=== PATIENT | male | born 1950 | race Caucasian/White ===

== ENCOUNTER → 2017-06-22 | Outpatient (CLI) | payer MEDICARE ==
[~2017-06-22] MED LIST: ASPIRIN LO-DOSE81 MG PO; CARAFATE1 GM PO; COREG25 MG PO; DEXILANT60 MG PO; ENTRESTO 24 MG1 EACH PO; FLEXERIL10 MG PO; HYDROCODON-ACE1 EAC4 PO; JANUVIA50 MG PO; K-TAB ER20 MEQ PO; LASIX40 MG PO; LEVEMIR100 UNIT/1 SUB-Q; MS CONTIN15 MG PO; NITROSTAT0.4 MG SL; PROZAC40 MG PO; REQUIP1 MG PO; TRENTAL400 MG PO; TYLENOL325 MG PO; XARELTO20 MG PO; ZOCOR40 MG PO
[2017-06-22 10:46] LABS: BASOPHIL # 0.1 K/uL (0.0-0.2); BASOPHIL % 1.2 %; EOSINOPHIL # 0.3 K/uL (0.0-0.5); EOSINOPHIL % 3.7 %; HEMATOCRIT 34.4 % (37.0-53.0); HEMOGLOBIN 11.5 g/dL (11.0-16.0); IMMATURE GRANULOCYTE % 0.3 %; LYMPHOCYTE # 1.6 K/uL (0.8-4.0); LYMPHOCYTE % 20.8 %; MCH 30.8 pg (27.0-34.0); MCHC 33.4 gm/dL (32.0-36.5); MCV 92.2 fl (83.0-98.0); MONOCYTE # 0.6 K/uL (0.0-1.0); MONOCYTE % 7.3 %; MPV 11.2 fl (9.4-12.4); NEUTROPHIL # (ANC) 5.1 K/uL (1.4-9.0); NEUTROPHIL % 66.7 %; NRBC % 0 /100WBC (0-0.00); PLATELET COUNT 161 K/uL (150-450); RBC 3.73 M/uL (3.50-5.50); RDW-CV 13.7 % (11.9-14.6); WBC 7.6 K/uL (4.0-11.0)
[2017-06-22 11:11] LABS: ALBUMIN 3.5 gm/dL (3.5-5.0); ANION GAP 9.8 (10.0-19.0); CALCIUM 8.2 mg/dL (8.5-10.5); CREATININE 1.3 mg/dL (0.6-1.3); TOTAL BILIRUBIN 0.4 mg/dL (0.0-1.5); TOTAL PROTEIN 6.7 g/dL (6.0-8.4)
[2017-06-22 11:20] LABS: POTASSIUM 2.8 mMol/L (3.7-5.1)
== END | disposition disaster alternative care site (69) ==
LOC: GLAB 06-21 10:30 → GRAD 06-21 10:30
PROVIDERS: Surgery Vascular Surgery
DX: I77.89 Other specified disorders of arteries and arterioles (principal); I70.201 Unspecified atherosclerosis of native arteries of extremities, right leg
CPT/HCPCS: Q9967